=== PATIENT | male | born 1930 | race Caucasian/White ===

== ENCOUNTER 2017-03-27 08:19 | Emergency (ER) | payer OTHER, BC ==
[2017-03-27 08:27] VITALS: O2SAT 98
--- NOTE | 2017-03-27 09:35 | EDPHY ---
H & P Time Seen by Provider: 03/27/17 09:15 HPI/ROS: CHIEF COMPLAINT: Hematuria HISTORY OF PRESENT ILLNESS: 87-year-old male presents to the emergency department with painless hematuria. Patient states that he felt fine last night and then when he woke up at 5:30 a.m. this morning to urinate, he noted gross blood. He has never had this in the past. No reported trauma. He denies chest pain or difficulty breathing. No abdominal pain. He denies dysuria, urgency or frequency with urination. No rectal bleeding. No bleeding gums. The patient has been on Eliquis for the last 1 year for a pacemaker and history of intermittent atrial fibrillation. He states he otherwise feels fine. REVIEW OF SYSTEMS: Constitutional: No fever, no chills. Eyes: No double or blurry vision. ENT: No sore throat. Respiratory: No cough, no shortness of breath. Cardiac: No chest pain. Gastrointestinal: No abdominal pain, vomiting or diarrhea. Genitourinary: Hematuria as above. No dysuria. Musculoskeletal: No neck or back pain. Skin: No rashes. Neurological: No headache. Past Medical/Surgical History: Pacemaker, atrial fibrillation, cardiac stents, hyperlipidemia Social History: Smoking Status: Never smoked Physical Exam: General Appearance: Alert, no distress. Vital signs are stable. Eyes: Pupils equal and round. Extraocular motions are all intact. ENT: Mouth: Mucous membranes moist. Respiratory: No wheezing, rhonchi, or rales, lungs are clear to auscultation. Cardiovascular: Regular rate and rhythm. Gastrointestinal: Abdomen is soft and nontender, no masses, no rebound or guarding, bowel sounds normal. Neurological: Alert and oriented x 3, cranial nerves II through XII grossly intact Skin: Warm and dry, no rashes. Musculoskeletal: Nontender to palpate along the cervical, thoracic or lumbar spine. Neck is supple. Extremities: Full range of motion and no peripheral edema. Psychiatric: Patient is oriented X 3, there is no agitation. Constitutional: Initial Vital Signs Heart Rate 67 03/27/17 08:25 Respiratory Rate 18 03/27/17 08:25 Blood Pressure 132/86 H 03/27/17 08:25 O2 Sat (%) 98 03/27/17 08:25 O2 Delivery Mode Room Air Allergies/Adverse Reactions: Sulfa (Sulfonamide Antibiotics) Allergy (Verified 03/27/17 08:22) Home Medications: Medication Instructions Recorded Aspirin [Aspirin 81mg (*)] 81 ng PO HS 07/18/15 Simvastatin [Zocor] 40 mg PO HS 07/18/15 Eliquis 03/27/17 predniSONE 03/27/17 Medical Decision Making ED Course/Re-evaluation: 87-year-old male presents to the emergency department with painless hematuria. Laboratory studies are pending. Clinically this patient appears well. He is afebrile. He is in no pain. Taiwo Kent spoke with the on-call physician engineer first assistant, Marcial, with Urology. She recommended a bladder scan. If he had post void residual urine that was greater than 250 mL of urine, she recommended placing [place] Fuente catheter. Otherwise she feels the bleeding was likely from the prostate and said that if he is able to urinate normally and has less than 250 mL as of urine postvoid, he could be discharged home and they would see him next week. The patient understands that he likely will continue to have some bleeding. He was instructed to return however if he developed urinary retention. The patient and the understand that he is at risk for urinary retention as he may developed some residual clotting in the blood in his urine. He was instructed to return if he develops any sensation like he has to urinate and is unable to. CBC and chemistries were within normal limits. Patient's creatinine is 1.4 which is stable for him. A year ago he was 1.5. He will follow up with urologist to discuss this. The family is comfortable taking him home. They will return to the emergency department if he is unable to urinate, if he feels lightheaded or weak or dizzy or any other concerns. Patient had post void residual urine of only 17 mL. Patient will be discharged home. Differential Diagnosis: Painless hematuria including but not limited to urinary tract infection, prostatitis, electrolyte abnormality, kidney stone - Data Points Laboratory Results: Laboratory Results 03/27/17 09:20 03/27/17 09:20 03/27/17 03/27/17 03/27/17 09:20 09:20 08:30 WBC 6.80 10^3/uL 10^3/uL (3.80-9.50) RBC 5.97 10^6/uL 10^6/uL (4.40-6.38) Hgb 17.5 g/dL g/dL (13.7-17.5) Hct 53.2 % H % (40.0-51.0) MCV 89.1 fL fL (81.5-99.8) MCH 29.3 pg pg (27.9-34.1) MCHC 32.9 g/dL g/dL (32.4-36.7) RDW 13.1 % % (11.5-15.2) Plt Count 192 10^3/uL 10^3/uL (150-400) MPV 10.1 fL fL (8.7-11.7) Neut % (Auto) 62.2 % % (39.3-74.2) Lymph % (Auto) 22.4 % % (15.0-45.0) Rains % (Auto) 8.7 % % (4.5-13.0) Eos % (Auto) 5.9 % % (0.6-7.6) Baso % (Auto) 0.7 % % (0.3-1.7) Nucleat RBC Rel Count 0.0 % % (0.0-0.2) Absolute Neuts (auto) 4.23 10^3/uL 10^3/uL (1.70-6.50) Absolute Lymphs (auto) 1.52 10^3/uL 10^3/uL (1.00-3.00) Absolute Monos (auto) 0.59 10^3/uL 10^3/uL (0.30-0.80) Absolute Eos (auto) 0.40 10^3/uL 10^3/uL (0.03-0.40) Absolute Basos (auto) 0.05 10^3/uL 10^3/uL (0.02-0.10) Absolute Nucleated RBC 0.00 10^3/uL 10^3/uL (0-0.01) Immature Gran % 0.1 % % (0.0-1.1) Immature Gran # 0.01 10^3/uL 10^3/uL (0.00-0.10) Sodium 147 mEq/L H mEq/L (134-144) Potassium 4.5 mEq/L mEq/L (3.5-5.2) Chloride 108 mEq/L mEq/L (97-110) Carbon Dioxide 27 mEq/l mEq/l (22-31) Anion Gap 12 mEq/L mEq/L (8-16) BUN 18 mg/dL mg/dL (7-23) Creatinine 1.4 mg/dL H mg/dL (0.7-1.3) Estimated GFR 48 Glucose 92 mg/dL mg/dL (70-100) Calcium 9.5 mg/dL mg/dL (8.5-10.4) Urine Color RED Urine Appearance CLOUDY Urine pH TNP Ur Specific [place] TNP Urine Protein TNP Urine Ketones TNP Urine Blood TNP Urine Nitrate TNP Urine Bilirubin TNP Urine Urobilinogen TNP Ur Leukocyte Esterase TNP Urine RBC >182 /hpf H /hpf (0-3) Urine WBC 3-5 /hpf H /hpf (0-3) Ur Epithelial Cells TRACE /lpf /lpf (NONE-1+) Ur Culture Indicated? NOT INDICATED (NI) Urine Glucose TNP 03/27/17 08:30 WBC RBC Hgb Hct MCV MCH MCHC RDW Plt Count MPV Neut % (Auto) Lymph % (Auto) Rains % (Auto) Eos % (Auto) Baso % (Auto) Nucleat RBC Rel Count Absolute Neuts (auto) Absolute Lymphs (auto) Absolute Monos (auto) Absolute Eos (auto) Absolute Basos (auto) Absolute Nucleated RBC Immature Gran % Immature Gran # Sodium Potassium Chloride Carbon Dioxide Anion Gap BUN Creatinine Estimated GFR Glucose Calcium Urine Color Urine Appearance Urine pH Ur Specific [place] Urine Protein Urine Ketones Urine Blood Urine Nitrate Urine Bilirubin Urine Urobilinogen Ur Leukocyte Esterase Urine RBC Urine WBC Ur Epithelial Cells Ur Culture Indicated? Cancelled Urine Glucose Departure - Departure Disposition: Home, Routine, Self-Care Clinical Impression: Hematuria Qualifiers: Hematuria type: gross Qualified Code(s): R31.0 - Gross hematuria Condition: Good Instructions: Hematuria (ED) Additional Instructions: Follow-up with Urology next week. Return to the emergency department if you develop urinary retention, if he developed abdominal pain, if you feel lightheaded or weak, or if you feel worse in any way. Continue your Eliquis as prescribed. Referrals: Zackary Sanchez MD [Medical Doctor] - 2-3 days without fail (Urologist on-call)
[2017-03-27 09:36] LABS: PLATELET COUNT 192 10^3/uL (150-400)
[2017-03-27 11:14] VITALS: BP 110/62; PULSE 77; RESP 15; TEMP 98.4
== END 2017-03-27 11:11 | disposition home or self-care (01) ==
DX: R31.0 Gross hematuria (principal); Z79.01 Long term (current) use of anticoagulants; Z79.82 Long term (current) use of aspirin; Z95.0 Presence of cardiac pacemaker; Z95.5 Presence of coronary angioplasty implant and graft

== ENCOUNTER → 2017-04-07 | Outpatient (CLI) | payer OTHER, BC ==
[~2017-04-07] MED LIST: IOPAMIDOL (ISOVUE-300) 100 ML BTL ONE
== END ==
LOC: FIMAGING 14:45
PROVIDERS: ATTEND Physician Assistant Medical
DX: R31.0 Gross hematuria (principal); N21.0 Calculus in bladder; N32.89 Other specified disorders of bladder
CPT/HCPCS: 74178; Q9967

== ENCOUNTER → 2017-04-10 | Outpatient (CLI) | payer OTHER, BC | LOC: BHFA 13:45 | PROVIDERS: ATTEND Internal Medicine Cardiovascular Disease | DX: I25.10 Atherosclerotic heart disease of native coronary artery without angina pectoris (principal); I48.91 Unspecified atrial fibrillation ==

== ENCOUNTER → 2018-03-12 | Outpatient (CLI) | payer OTHER, BC | LOC: BHFA 14:00 | PROVIDERS: ATTEND Internal Medicine Interventional Cardiology | DX: I48.91 Unspecified atrial fibrillation (principal) ==

== ENCOUNTER → 2018-04-08 | Outpatient (CLI) | payer OTHER, BC | LOC: BHFA 13:15 | PROVIDERS: ATTEND Internal Medicine Cardiovascular Disease | DX: I48.91 Unspecified atrial fibrillation (principal); E78.5 Hyperlipidemia, unspecified; I25.119 Atherosclerotic heart disease of native coronary artery with unspecified angina pectoris ==